=== PATIENT | female | born 1970 | race Caucasian/White ===

== ENCOUNTER → 2022-03-28 | Outpatient (CLI) | payer OTHER ==
[2022-03-28 10:36] LABS: BASOPHILS % (AUTO) 1 % (0-10); EOSINOPHILS # (AUTO) 0.1 10^3/uL (0.0-0.3); EOSINOPHILS % (AUTO) 2 % (0-10); HEMATOCRIT 40 % (35-52); HEMOGLOBIN 13.4 g/dL (11.5-16.0); LYMPHOCYTES # (AUTO) 1.9 10^3/uL (1.0-4.0); LYMPHOCYTES % (AUTO) 31 % (12-44); MEAN CORPUSCULAR HEMOGLOBIN 31 pg (25-34); MEAN CORPUSCULAR HGB CONC 34 g/dL (32-36); MEAN CORPUSCULAR VOLUME 93 fL (80-99); MEAN PLATELET VOLUME 12.8 fL (9.0-12.2); MONOCYTES # (AUTO) 0.5 10^3/uL (0.0-1.0); MONOCYTES % (AUTO) 8 % (0-12); NEUTROPHILS # (AUTO) 3.7 10^3/uL (1.8-7.8); NEUTROPHILS % (AUTO) 59 % (42-75); PLATELET COUNT 218 10^3/uL (130-400); WHITE BLOOD COUNT 6.3 10^3/uL (4.3-11.0)
[2022-03-28 11:35] LABS: ALBUMIN 4.2 GM/DL (3.2-4.5); BILIRUBIN,TOTAL 0.6 MG/DL (0.1-1.0); CALCIUM 9.3 MG/DL (8.5-10.1); CREATININE SERUM 1.08 MG/DL (0.60-1.30); POTASSIUM 3.9 MMOL/L (3.6-5.0); TOTAL PROTEIN 6.9 GM/DL (6.4-8.2)
[2022-03-28 15:26] LABS: FREE T4 (FREE THYROXINE) 0.79 NG/DL (0.70-1.48)
== END ==
LOC: LAB FS 09:41
PROVIDERS: ATTEND Registered Nurse Emergency
DX: Z00.00 Encounter for general adult medical examination without abnormal findings (principal); Z12.31 Encounter for screening mammogram for malignant neoplasm of breast; M25.561 Pain in right knee; F32.9 Major depressive disorder, single episode, unspecified; R73.09 Other abnormal glucose
CPT/HCPCS: 36415; 80053; 80061; 83036; 84439; 84443; 85025

== ENCOUNTER 2023-04-19 01:08 | Emergency (ER) | payer BC ==
[~2023-04-19] VITALS: Ht 172.7 cm; Wt 90.0 kg
[2023-04-19 01:25] VITALS: BP 125/67
[2023-04-19] MEDS ORDERED: TETRACAINE 0.5% OPHTH SOLN 4 ML BTL (SINGLE DOSE ONLY) ONE (01:35)
[2023-04-19] MEDS ORDERED: FLUORESCEIN (FLUOR-I-STRIPS) 1 MG STRP ONE (01:35)
--- NOTE | 2023-04-19 01:41 | ED EENT ---
History of Present Illness General Chief Complaint: Eye Problems Stated Complaint: L EYE ISSUES History of Present Illness Date Seen by Provider: Apr 19, 2023 Time Seen by Provider: 01:23 Initial Comments 53-year-old female is here with complaints of left eye irritation, pain, itching, discharge, blurry vision which has been going on for the past week with increasing intensity today evening while she was watching a movie. Patient may have subconsciously rubbed her eyes due to the irritation. Denies floaters, peripheral vision shadowing, black spots, flashes of light, fever. Patient does not remember getting a foreign body in the eye. Pt also has crusting of her eyelashes, discharge coming out of her left eye which is yellowish in color, christen adrian eyes and pinkeye. Patient does not wear contacts. Allergies and Home Medications Allergies Coded Allergies: meperidine (Verified Allergy, Unknown, Hives, 04/19/23) Patient Home Medication List Home Medication List Reviewed: Yes Erythromycin Base (Erythromycin Opthalmic Ointment) 5 Mg/Gram (0.5 %) Oint...g., 0 OP Q8H Prescribed by: CARLOS MCCORD MD on 04/19/23 0205 Last Action: New Order Review of Systems Review of Systems Constitutional: no symptoms reported Eyes: See HPI, Blurred Vision, Drainage, Foreign Body Sensation, Inflammation, Photophobia Ears: No Symptoms Reported Nose: no symptoms reported Mouth: no symptoms reported Throat: no symptoms reported Respiratory: no symptoms reported Cardiovascular: no symptoms reported Gastrointestinal: no symptoms reported Musculoskeletal: no symptoms reported Skin: no symptoms reported Neurological: No Symptoms Reported Hematologic/Lymphatic: No Symptoms Reported Immunological/Allergic: no symptoms reported Visual Acuity : Eye Location: Bilaterally Vision Acuity Degree: 20/20 Physical Exam Vital Signs Vital Signs - First Documented 04/19/23 01:25 Temp 36.8 Pulse 74 Resp 18 B/P (MAP) 125/67 (86) Height, Weight, BMI Height: '" Weight: lbs. oz. kg; BMI Method: General Appearance: WD/WN, mild distress Eyes: left eye PERRL, left eye EOMI, left eye abnormal EOM, left eye conjunctival inflammation, left eye corneal abrasion (Seen with Christopher lamp and fluorescein strip: Abrasion seen in the cornea extending from the 3 o'clock position to the 6 o'clock position. In the lateral conjunctiva), left eye other (Crusting of eyelashes seen with yellowish discharge coming from the eye) Nose: normal inspection Mouth/Throat: normal mouth inspection, pharynx normal Neck: non-tender, full range of motion, supple Cardiovascular: regular rate, rhythm Respiratory: lungs clear Gastrointestinal: non tender, soft Neurologic/Psychiatric: pet caretaker II-XII nml as tested, no motor/sensory deficits, alert, oriented x 3 Skin: normal color Progress/Results/Core Measures Results/Orders My Orders Orders - CARLOS MCCORD MD Fluorescein Strips ([id number]) (04/19/23 01:35) Tetracaine 0.5% Ophth Gretta Sdv (Tetracai (04/19/23 01:35) Erythromycin Ophth Oint (Erythromycin Op (04/19/23 01:55) Vital Signs/I&O 04/19/23 01:25 Temp 36.8 Pulse 74 Resp 18 B/P (MAP) 125/67 (86) Progress Progress Note : Progress Note 1. LEFT CORNEAL ABRASION/ CONJUNCTIVAL ABRASION: - Erythromycin ophthalmic ointment to be applied to the affected eye 3 times a day for 10 days -Keep eye clean and wipe all discharge, -Use [id number] artificial tears to moisten the eye including the eye -Follow-up with ophthalmology as soon as possible. -Advised not to rub the eye -Advised good hand hygiene Departure Impression Primary Impression: Bacterial conjunctivitis of left eye Additional Impressions: Left corneal abrasion Qualified Codes: S05.02XA - Injury of conjunctiva and corneal abrasion without foreign body, left eye, initial encounter Abrasion of left conjunctiva Qualified Codes: S05.02XA - Injury of conjunctiva and corneal abrasion without foreign body, left eye, initial encounter Disposition: 01 HOME, SELF-CARE Condition: Stable Departure-Patient Inst. Referrals: ALESHIA VOGEL APRN (PCP) Primary Care Physician AZUCENA ROBERTS MD (Family) Primary Care Physician Patient Instructions: Conjunctivitis ([facility]) ED, How to Use Eye Drops and Eye Ointment ED, Corneal Abrasion ([facility]) Add. Discharge Instructions: - Erythromycin ophthalmic ointment to be applied to the affected eye 3 times a day for 10 days -Keep eye clean and wipe all discharge, -Use [id number] artificial tears to moisten the eye including the eye -Follow-up with ophthalmology as soon as possible. -Advised not to rub the eye -Advised good hand hygiene All discharge instructions reviewed with patient and/or family. Voiced understanding. Scripts Erythromycin Base (Erythromycin Opthalmic Ointment) 5 Mg/Gram (0.5 %) Oint...g. 0 OP Q8H for 10 Days, #1 EA 1/2 inch Prov: CARLOS MCCORD MD 04/19/23 CARLOS MCCORD MD Apr 19, 2023 01:41
[2023-04-19] MEDS ORDERED: ERYTHROMYCIN OPHTH OINT 1 GM (SINGLE USE) TUBE OP STA (01:55)
[2023-04-19] MEDS ORDERED: ERYT1OIN6 OP (02:05)
[2023-04-19] MEDS ORDERED: ERYTHROMYCIN OPHTH OINT 1 GM (SINGLE USE) TUBE ONE (02:07)
== END 2023-04-19 02:20 | disposition home or self-care (01) ==
LOC: EDUNIT# 01:08 → ER FS 01:11
DX: S05.02XA Injury of conjunctiva and corneal abrasion without foreign body, left eye, initial encounter (principal); H10.9 Unspecified conjunctivitis; Z28.310 Unvaccinated for COVID-19; X58.XXXA Exposure to other specified factors, initial encounter
CPT/HCPCS: 99281